=== PATIENT | male | born 1955 | race Caucasian/White ===

== ENCOUNTER 2020-03-24 11:30 | Outpatient (CLI) | payer OTHER, MEDICARE | END 2020-03-24 11:31 | disposition home or self-care (01) | LOC: DTY/OP 11:30 | PROVIDERS: ATTEND Surgery | DX: E66.01 Morbid (severe) obesity due to excess calories (principal) | CPT/HCPCS: 97802 ==

== ENCOUNTER 2020-06-01 08:30 | Inpatient (IN) | payer OTHER, MEDICARE ==
[2020-06-02 14:53] VITALS: BMI 52.5
[2020-06-04] MEDS ORDERED: Heparin 5,000 UNITS/ML VIAL ONE (07:39)
[2020-06-04] MEDS ORDERED: Bupivacaine 0.25% HCL 30 ML VIAL ONE (08:09)
[2020-06-04] MEDS ORDERED: Lidocaine 1% w/Epinephrine 1:100K 20 ML VIAL ONE (08:09)
[2020-06-04] MEDS ORDERED: Fentanyl 100 MCG/2 ML VIAL ONE ×6 (09:08→15:50)
[2020-06-04] MEDS ORDERED: Glycopyrrolate 0.2 MG/ML 5 ML SYRINGE ONE (10:07)
[2020-06-04] MEDS ORDERED: Rocuronium Bromide 10 MG/ML (10ML VIAL) ONE (10:07)
[2020-06-04] MEDS ORDERED: PROPOFOL 200 MG/20 ML VIAL ONE (10:07)
[2020-06-04] MEDS ORDERED: Ondansetron PF 4 MG/2 ML Vial ONE (10:07)
[2020-06-04] MEDS ORDERED: Lidocaine 1% PF 5 ML VIAL ONE (10:07)
[2020-06-04] MEDS ORDERED: Ketorolac Tromethamine 30 MG/ML VIAL ONE (10:07)
[2020-06-04] MEDS ORDERED: Dexamethasone 20 MG/5 ML VIAL ONE (10:07)
[2020-06-04] MEDS ORDERED: Zolpidem Tartrate 5 MG TAB PO PRN (10:53)
[2020-06-04] MEDS ORDERED: diphenhydrAMINE 25 MG CAP PO PRN (10:53)
[2020-06-04] MEDS ORDERED: diphenhydrAMINE 50 MG/ML VIAL IVP PRN ×2 (10:53→13:13)
[2020-06-04] MEDS ORDERED: Naloxone HCl 0.4 mg/ml Vial IV PRN (10:53)
[2020-06-04] MEDS ORDERED: Ondansetron PF 4 MG/2 ML Vial IVP PRN ×2 (10:53→13:13)
[2020-06-04] MEDS ORDERED: Ondansetron HCl/PF 4 MG/2 ML Vial IVP PRN (10:53)
[2020-06-04] MEDS ORDERED: fentaNYL Citrate/PF 2,000 MCG in Sodium Chloride 0.9% 60 ML IV PRN (10:53)
[2020-06-04] MEDS ORDERED: Promethazine HCl 25 MG/ML VIAL SLOW IVP PRN (10:53)
[2020-06-04] MEDS ORDERED: Promethazine HCl 25 MG/ML VIAL IM PRN ×3 (10:53→13:13)
[2020-06-04] MEDS ORDERED: diphenhydrAMINE 50 MG/ML VIAL IM PRN (10:53)
[2020-06-04] MEDS ORDERED: Communication Order-Pharmacy FS PRN (11:00)
[2020-06-04] MEDS ORDERED: D5 1/2 NS w/20 mEq KCL 1,000 ML ONE (11:25)
--- NOTE | 2020-06-04 12:15 | OP ---
DATE OF PROCEDURE: 06/04/2020 PREOPERATIVE DIAGNOSES: 1. Morbid obesity with body mass index of 55. 2. Sleep apnea. 3. Hypercholesteremia. 4. Essential hypertension. POSTOPERATIVE DIAGNOSES: 1. Morbid obesity with body mass index of 55. 2. Paraesophageal hiatal hernia 3. Sleep apnea. 4. Hypercholesteremia. 5. Essential hypertension. PROCEDURES PERFORMED: 1. Laparoscopic sleeve gastrectomy with GORE staple line reinforcement and 38- Welsh bougie. 2. Hiatal hernia repair without fundoplication or mesh. 3. Esophagogastroduodenoscopy. ANESTHESIA: General. ESTIMATED BLOOD LOSS: Minimal. COMPLICATIONS: None. SPECIMEN: None. FINDINGS: Hiatal hernia. DESCRIPTION OF PROCEDURE: The patient was taken to the operating room and laid supine on the operating room table. After general anesthetic was obtained, arms and legs were double strapped to bariatric table. OG tube was used to decompress the stomach. The abdomen was shaved, prepped, and draped in a sterile fashion. Left subcostal 5-mm Optiview trocar was placed in the usual fashion. High-flow pneumoperitoneum was obtained. Left and right abdominal 12-mm ports as well as a right subcostal 5-mm port were placed under direct visualization. Short gastrics were taken down from the midbody of stomach to the left shaunna of the diaphragm. Left shaunna, posterior fundus, and angle of His were completely resected. The patient had adhesions from prior lap band. These were all taken down using sharp dissection. There was a hiatal hernia present, so a circumferential dissection of the esophagus was performed. The gastrohepatic ligament was opened, facilitating the medial dissection. The GE junction was brought back in and the fundus brought back into the abdominal cavity. Multiple loads of an [place] stapling device were used to perform the sleeve as the 1st was fired up at a distance of 6 cm proximal to the pylorus, angled up towards the incisura. Multiple loads were then fired up along the bougie. Stomach was completely transected at the angle of His. Stomach was removed from the left abdominal incision and its fascial defect was closed using GraNee needle and 0 Vicryl tie. The posterior crura was closed using one interrupted Ethibond suture in the Ti-KNOT system. Bougie was removed. EGD scope was passed from the esophagus through the stomach to the level of duodenum without obstruction. There was no air leakage through the staple line. There was no stricture. It was not too tight at the diaphragmatic hiatus. The EGD scope was used to decompress the stomach and it was pulled and removed. The Mary Jane retractor was removed under direct visualization without injury. There was no ongoing bleeding. All port sites were infiltrated using local anesthetic. All ports were removed under camera visualization. Pneumoperitoneum was let down. Vicryl was used to closer the fascial defect from the left abdominal incisions. All incisions were irrigated and closed using 4-0 Monocryl and Dermabond. The patient was sent to Recovery in stable condition. All instrument counts, needle counts , and lap counts were correct. Job ID: [id number] [facility]
[2020-06-04] MEDS ORDERED: Hydrocodone-Acetamin 15 ML UDCUP PO PRN (13:13)
[2020-06-04] MEDS ORDERED: Dextrose 50% Abboject 50 ML SYRINGE SLOW IVP PRN (13:13)
[2020-06-04] MEDS ORDERED: Dextrose 5% in Water 1,000 ML IV PRN (13:13)
[2020-06-04] MEDS ORDERED: hydrALAZINE 20 MG/ML VIAL SLOW IVP PRN (13:13)
[2020-06-04] MEDS: D5 1/2 NS w/20 mEq KCL 1,000 ML IV SCH ×2 (16:15→20:08)
[2020-06-04] MEDS: Carvedilol 6.25 MG TAB PO SCH (20:08)
[2020-06-04] MEDS ORDERED: Atorvastatin Calcium 20 MG TAB PO SCH (21:00)
[2020-06-04] MEDS ORDERED: Enoxaparin Sodium 40 MG/0.4 ML SYRINGE SC SCH (21:00)
[2020-06-04] MEDS ORDERED: Furosemide 40 MG/4 ML VIAL SLOW IVP SCH (22:15)
[2020-06-05 05:23] LABS: #Lymphocytes 1.4 thou/uL (1.20-3.40); #Monocytes 0.7 thou/uL (0.11-0.59); #Neutrophils 10.7 thou/uL (1.40-6.50); %Basophils 0.2 % (0.0-1.0); %Eosinophils 0.3 % (0.0-10.0); %Lymphocytes 10.5 % (21.0-51.0); %Monocytes 5.2 % (0.0-10.0); %Neutrophils 83.8 % (42.0-75.0); Hemoglobin 14.2 g/dL (14.0-18.0); Mean Corpuscular HGB CONC 33.5 g/dL (32.0-36.0); Mean Corpuscular Hemoglobin 30.8 pg (27.0-31.0); Mean Platelet Volume 8.5 fL (7.4-10.4); Platelet Count 178 thou/uL (130-400); RBC Distribution Width 12.4 % (11.5-14.5); White Blood Cell (WBC) Count 12.8 thou/uL (4.8-10.8)
[2020-06-05 05:35] LABS: Anion Gap 12 mmol/L (10-20); BUN (Urea Nitrogen) 24 mg/dL (8.4-25.7); Calc. Creatinine Clearance 201 mL/min (70-130); Carbon Dioxide 25 mmol/L (23-31); Chloride 101 mmol/L (98-107); Estimated GFR-MDRD 75; Glucose 134 mg/dL (80-115); Potassium 3.9 mmol/L (3.5-5.1); Sodium 134 mmol/L (136-145)
--- NOTE | 2020-06-05 07:21 | PDOC.GSPN ---
Surgery Progress Note: Subj - Subjective Patient reports: no new complaints, pain well controlled (Pain is well controlled by fentanyl but pt requests to go back to home medications prescribed by his pain specialist - hydrocodone, gabapentin, cyclobenzapine), tolerating liquids well, no bowel movement (Pt is worried about opioid-induced constipation and requests to be on a laxative called symproic.) Surgery Progress Note: Obj - Vital signs Vital signs: Vital Signs - Most Recent Temp Pulse Resp BP Pulse Ox 97.8 F 70 18 134/81 100 06/05/20 04:00 06/05/20 04:00 06/05/20 04:00 06/05/20 04:00 06/05/20 04:00 - Physical Exam General: no distress, well developed, well nourished Cardiovascular: regular rate and rhythm Respiratory: clear to auscultation, normal expansion (Spirometer level at 1750) , normal respiratory effort, breath sounds present Abdomen: soft, non tender Wound: dressing clean,dry,intact, healing well Surgery Progress Note: Results - Labs Result Diagrams: 06/05/20 04:57 06/05/20 04:57 Lab results: Laboratory Results - last 24 hr 06/05/20 06/05/20 04:57 04:57 WBC 12.8 H RBC 4.60 L Hgb 14.2 Hct 42.3 MCV 92.0 MCH 30.8 MCHC 33.5 RDW 12.4 Plt Count 178 MPV 8.5 Neutrophils % 83.8 H Lymphocytes % 10.5 L Monocytes % 5.2 Eosinophils % 0.3 Basophils % 0.2 Neutrophils # 10.7 H Lymphocytes # 1.4 Monocytes # 0.7 H Eosinophils # 0.0 Basophils # 0.0 Sodium 134 L Potassium 3.9 Chloride 101 Carbon Dioxide 25 Anion Gap 12 BUN 24 Creatinine 0.99 Estimated GFR (MDRD) 75 Glucose 134 H Calcium 9.0 Surgery Progress Note: A/P - Problem (1) Morbid obesity Current Visit: Yes Code(s): E66.01 - MORBID (SEVERE) OBESITY DUE TO EXCESS CALORIES Status: Acute - Plan Plan: Assessment: Dez Gorman is a 65yo white male 1 day post gastric sleeve for inpatient recovery. Pt is tolerating liquid broths, denies nausea and vomiting and significant pain. Pt is ambulating. Plan: Continue monitory lab findings. Possible discharge today.
[2020-06-05] MEDS ORDERED: NALDEMEDINE TOSYLATE PO SCH (09:00)
[2020-06-05] MEDS ORDERED: Pantoprazole 40 MG VIAL IVP SCH (09:00)
[2020-06-05] MEDS ORDERED: Tamsulosin HCl 0.4 MG CAP PO SCH (09:00)
[2020-06-05] MEDS ORDERED: Losartan 25 MG TAB PO SCH ×2 (09:00)
[2020-06-05] MEDS: Carvedilol 6.25 MG TAB PO SCH (09:30)
--- NOTE | 2020-06-05 11:15 | DIS ---
DATE OF ADMISSION: 06/04/2020 DATE OF DISCHARGE: 06/05/2020 ADMIT DIAGNOSIS: Morbid obesity. DISCHARGE DIAGNOSES: 1. Morbid obesity. 2. Hiatal hernia. PROCEDURES PERFORMED: Laparoscopic sleeve gastrectomy by Dr. Sandoval without complication. CONDITION ON DISCHARGE: Improved. STAFF: Zach Sandoval MD HOSPITAL COURSE: On postoperative day #1, the patient is doing well. He is tolerating the liquids. He is ambulatory. He was discharged to home on Protonix and Zofran. He gets his pain medicine from his pain doctor out of the [place]. He is going to resume all of his home medications. He will follow up with me in 2 weeks. Job ID: [id number]
[2020-06-05] MEDS ORDERED: Gabapentin 400 MG CAP PO SCH (13:00)
[2020-06-05] MEDS: D5 1/2 NS w/20 mEq KCL 1,000 ML IV SCH (14:41)
[2020-06-05] MEDS ORDERED: Cyclobenzaprine 10 MG TAB PO SCH (15:00)
[2020-06-05 15:48] VITALS: BP 113/67; TEMP 97.6
--- NOTE | 2020-06-08 06:40 | PQF ---
CLINICAL DOCUMENTATION CLARIFICATION FORM: Dear :Zach Sandoval Date / Time: 06/08/2020 06:39 Please exercise your independent, professional judgment in responding to the clarification form. Clinical indicators are provided on the bottom of this form for your review Can you please clarify the diagnosis being treated? Please check appropriate box(es): [ ] Associated Diagnosis: Hyponatremia [ X ] Not clinically significant laboratory findings [ ] Other diagnosis [ ] Unable to determine In addition, please specify: Present on Admission (POA): [ ] Yes [ ] No [ ] Unable to determine Physician Signature: Date/Time: For continuity of documentation, please document condition throughout progress notes and discharge summary. Thank You. To be completed by CDI/Coding staff for physician review: Present Clinical Indicators - Signs / Symptoms / Labs Results and Location in Medical Record [x] Sodium: [id number] Labs 06/05 [x] s/p gastric sleeve PN 06/05 [x] patient is tolerating liquid broth and denies nausea and vomiting PN 06/05 [x] no significant pain PN 06/05 Present Risk Factors Results and Location in Medical Record [x] 65 years old male HP 06/04 [x] Morbid obesity HP 06/04 [x] HTN HP 06/04 [x] Hiatal hernia OP Note 06/04 [x] s/p lap sleeve gastrectomy OP Note 06/04 Present Treatments Results and Location in Medical Record [x] IVF MAR 06/04 [x] Laboratory Monitoring Collected 06/05 CDS/Typing Office Worker Signature: Marivn Burton Phone #: ext [phone] Date/Time: 06/08/2020 06:39 This is a permanent part of the Medical Record [facility]
== END 2020-06-05 16:55 | disposition home or self-care (01) | DRG 621 ==
LOC: SURG A 06-04 07:01
PROVIDERS: ADMIT Surgery; ATTEND Surgery
PROC: 0DB64Z3 Excision of Stomach, Percutaneous Endoscopic Approach, Vertical (ICD-10-PCS; principal; 2020-06-04)
PROC: 0BUT4JZ Supplement Diaphragm with Synthetic Substitute, Percutaneous Endoscopic Approach (ICD-10-PCS; 2020-06-04)
PROC: 0DJ08ZZ Inspection of Upper Intestinal Tract, Via Natural or Artificial Opening Endoscopic (ICD-10-PCS; 2020-06-04)
DX: E66.01 Morbid (severe) obesity due to excess calories (principal); Z96.653 Presence of artificial knee joint, bilateral; I10 Essential (primary) hypertension; I48.91 Unspecified atrial fibrillation; G47.33 Obstructive sleep apnea (adult) (pediatric); N40.0 Benign prostatic hyperplasia without lower urinary tract symptoms; E78.5 Hyperlipidemia, unspecified; E78.00 Pure hypercholesterolemia, unspecified; I25.10 Atherosclerotic heart disease of native coronary artery without angina pectoris; K44.9 Diaphragmatic hernia without obstruction or gangrene; Z95.5 Presence of coronary angioplasty implant and graft; Z79.82 Long term (current) use of aspirin; Z79.899 Other long term (current) drug therapy; Z68.43 Body mass index [BMI] 50.0-59.9, adult; Z01.818 Encounter for other preprocedural examination; Z11.59 Encounter for screening for other viral diseases
CPT/HCPCS: 36415; 71046; 80048; 83036; 85025; 87635; 88307; 88312; 88341; 88342; 93005; C9113; J0690; J1100; J1644; J1650; J1885; J1940; J2405; J2704; J3010; J3480; S0020; U0003